=== PATIENT | female | born 1945 | race Asian ===

== ENCOUNTER → 2017-09-07 | Outpatient (CLI) | payer MEDICARE, OTHER | END | disposition home or self-care (01) | LOC: RADPV 11:54 | PROVIDERS: ATTEND Internal Medicine | DX: J98.4 Other disorders of lung (principal); I51.7 Cardiomegaly; I70.0 Atherosclerosis of aorta | CPT/HCPCS: 71046 ==

== ENCOUNTER → 2017-10-08 | Outpatient (CLI) | payer MEDICARE, OTHER ==
[~2017-10-08] MED LIST: IOVERSOL 320 MG/ML 100 ML VIAL ONE; SODIUM CHLORIDE 0.9% 100 ML ONE
== END | disposition home or self-care (01) ==
LOC: RADMN 08:43
PROVIDERS: ATTEND Internal Medicine
DX: J98.11 Atelectasis (principal); I71.2 Thoracic aortic aneurysm, without rupture; K76.89 Other specified diseases of liver; Z90.49 Acquired absence of other specified parts of digestive tract
CPT/HCPCS: 71260; J7050; Q9967

== ENCOUNTER → 2017-12-09 | Outpatient (CLI) | payer MEDICARE, OTHER ==
[~2017-12-09] VITALS: Ht 152.4 cm; Wt 59.0 kg
[~2017-12-09] MED LIST changes: +AMLO-511 PO; -IOVERSOL 320 MG/ML 100 ML VIAL ONE; +METO50 PO; -SODIUM CHLORIDE 0.9% 100 ML ONE
[2017-12-09 13:59] VITALS: BP 137/74
== END | disposition home or self-care (01) ==
LOC: SRCNTR 13:57
PROVIDERS: ATTEND Internal Medicine Critical Care Medicine
DX: I10 Essential (primary) hypertension (principal); I71.2 Thoracic aortic aneurysm, without rupture; Z87.891 Personal history of nicotine dependence; Z90.49 Acquired absence of other specified parts of digestive tract
CPT/HCPCS: G0463

== ENCOUNTER → 2018-01-12 | Outpatient (CLI) | payer MEDICARE, OTHER ==
[~2018-01-12] VITALS: Ht 152.4 cm; Wt 59.0 kg
[2018-01-12 13:57] VITALS: BP 169/74
== END | disposition home or self-care (01) ==
LOC: SRCNTR 13:35
PROVIDERS: ATTEND Internal Medicine Critical Care Medicine
DX: J98.4 Other disorders of lung (principal); I10 Essential (primary) hypertension; Z87.891 Personal history of nicotine dependence
CPT/HCPCS: G0463